=== PATIENT | female | born 1955 | race Caucasian/White ===

== ENCOUNTER 2023-03-29 14:00 | Outpatient (RCR) | payer MEDICARE, SELFPAY | END 2023-04-15 11:27 | disposition home or self-care (01) | LOC: HO.PT 14:00 | PROVIDERS: PCP Pediatrics; Visit Provider Student in an Organized Health Care Education/Training Program | DX: M62.89 Other specified disorders of muscle (principal) | CPT/HCPCS: 97110; 97140; 97162; 97535 ==